=== PATIENT | female | born 1975 | race Caucasian/White ===

== ENCOUNTER 2023-03-08 10:05 | Emergency (ER) | payer SELFPAY ==
[2023-03-08] MEDS ORDERED: Cyclobenzaprine 10 MG TAB ONE (10:37)
[2023-03-08] MEDS ORDERED: Ketorolac Tromethamine 30 MG/ML VIAL ONE (10:42)
[2023-03-08] MEDS ORDERED: Lidocaine 4% Patch TD SCH (11:00)
[2023-03-08 11:34] LABS: Bacteria/HPF None Seen HPF (None Seen); Bilirubin Negative (Negative); Blood, Urine Trace (Negative); CAUTI Indications for Culture Dysuria,urgency,freq; Clarity Clear (Clear); Glucose, Urine (Dipstick) 70 mg/dL (Negative); Ketone, Urine Negative (Negative); Leukocyte Negative Leu/uL (Negative); Nitrite Negative (Negative); Protein, Urine (Dipstick) Negative (Neg-Trace); RBC/HPF 0-3 HPF (0-3); Specific Gravity, Urine 1.009 (1.002-1.036); Squamous Epithelial 0-3 HPF (0-3); Urobilinogen Normal mg/dL (Less than 2); WBC/HPF 0-3 HPF (0-3); pH, Urine 6.5 (5.0-9.0)
[2023-03-08 11:38] LABS: Urine Culture Reflex No No
== END 2023-03-08 12:24 | disposition home or self-care (01) ==
LOC: ERS 10:05
DX: N20.0 Calculus of kidney (principal); M54.50 Low back pain, unspecified; I50.9 Heart failure, unspecified; E11.9 Type 2 diabetes mellitus without complications
CPT/HCPCS: 72100; 74176; 81001; 96372; J1885